=== PATIENT | female | born 1930 | race Caucasian/White ===

== ENCOUNTER 2022-01-21 12:48 | Emergency (ER) | payer MEDICARE, MEDICAID ==
[2022-01-21] MEDS ORDERED: Sodium Chloride 0.9% 10 ML Syringe FLUSH PRN (13:32)
[2022-01-21] MEDS ORDERED: Sodium Chloride 0.9% 1,000 ML IV ONE (13:40)
[2022-01-21] MEDS ORDERED: cefTRIAXone 1 GM in Sodium Chloride 0.9% 100 ML IV ONE (14:29)
[2022-01-21] MEDS ORDERED: Metoprolol Succinate 25 MG Tab.ER PO ONE ×2 (14:37→16:26)
[2022-01-21] MEDS ORDERED: Apixaban 5 MG Tab PO ONE ×2 (14:38→18:29)
== END 2022-01-21 18:58 | disposition home or self-care (01) ==
LOC: JD.ED 12:48
DX: N39.0 Urinary tract infection, site not specified (principal); I48.91 Unspecified atrial fibrillation; Z79.899 Other long term (current) drug therapy
CPT/HCPCS: 36415; 51701; 71045; 80053; 81001; 83735; 83880; 84443; 84484; 85025; 86140; 87086; 87088; 87186; 93005; 96361; 96365; 99284; A9270; J0696; J3490; J7030